=== PATIENT | female | born 1995 | race Caucasian/White ===

== ENCOUNTER 2018-08-03 14:09 | Emergency (ER) | payer SELFPAY ==
[~2018-08-03] VITALS: Ht 167.6 cm; Wt 128.4 kg
[2018-08-03 14:24] VITALS: Ht 167.6 cm; Wt 128.4 kg
[2018-08-03 16:20] VITALS: BP 140/71
== END 2018-08-03 16:20 | disposition home or self-care (01) ==
LOC: ED 14:09
DX: S00.03XA Contusion of scalp, initial encounter (principal); V48.5XXA Car driver injured in noncollision transport accident in traffic accident, initial encounter; Y93.I9 Activity, other involving external motion; Y92.411 Interstate highway as the place of occurrence of the external cause; Y99.8 Other external cause status